=== PATIENT | female | born 1935 | race Caucasian/White ===

== ENCOUNTER 2018-09-12 22:23 | Inpatient (IN) ==
[2018-09-13] MEDS ORDERED: ONDANSETRON 4 MG/2 ML VIAL IV PRN (01:07)
[2018-09-13] MEDS: POTASSIUM CHLORIDE RIDER 10 MEQ in PREMIX 1 EACH IV SCH ×2 (01:50→05:44)
[2018-09-13 01:59] LABS: Troponin I 0.038 NG/ML (0.00-0.045)
[2018-09-13 02:05] LABS: Thyroid Stimulating Hormone 1.89 uIU/ml (0.358-3.74)
[2018-09-13 05:51] LABS: Basophils % 0.5 % (0.0-0.8); Eosinophils % 0.1 % (0.00-10.9); Hematocrit 36.4 VOL% (35.7-47.0); Hemoglobin 11.8 GM/DL (12.0-16.0); Immature Granulocytes % 0.5 %; Immature Granulocytes Absolute 0.04 #; Lymphocytes # 0.9 10*3/uL (1.4-4.0); Lymphocytes % 10.6 % (21.3-54.2); Mean Corpuscular HGB Conc 32.4 GM/DL (32-36); Mean Corpuscular Volume 84.5 FL (87-102); Mean Platelet Volume 11.6 FL (9.6-12.0); Monocytes % 8.6 % (1.7-12.7); Neutrophils % 79.7 % (38.7-73.9); Platelet Count 242 T/CUMM (130-400); Red Blood Count 4.31 MC/CUMM (3.8-5.5); Red Cell Distribution Width 14.6 % (9.3-17.3); White Blood Count 8.3 T/CUMM (4-12)
[2018-09-13 06:19] LABS: Calcium 9.9 MG/DL (8.5-10.1); Osmolality,Calculated 271.8 MOS/KG (273-304)
[2018-09-13] MEDS ORDERED: LISINOPRIL 20 MG TABLET PO SCH (09:00)
[2018-09-13] MEDS ORDERED: AMIODARONE 200 MG TABLET PO SCH (09:00)
[2018-09-13] MEDS ORDERED: PANTOPRAZOLE 40 MG TABLET PO SCH (09:00)
[2018-09-13] MEDS ORDERED: RIVAROXABAN 20 MG TABLET PO SCH (09:00)
[2018-09-13] MEDS ORDERED: METOPROLOL TARTRATE 25 MG TABLET PO SCH (09:00)
[2018-09-13 14:08] LABS: Troponin I 0.024 NG/ML (0.00-0.045)
[2018-09-13 16:39] VITALS: BP 164/71
[2018-09-13 16:50] LABS: Apearance,Urine CLEAR (Clear); Bilirubin,Urine Negative (Negative); Blood, Urine Negative (Negative); Calcium Oxalate Crystals,Urine Occasional /HPF (Few); Glucose,Urine (UA) Negative (Negative); Ketones,Urine Negative (Negative); Mucus,Urine Occasional /LPF (Occasional); Nitrite,Urine Negative (Negative); Protein,Urine Negative; RBC,Urine 1 /HPF (0-4); Squamous Epithelial Cell,Urine Occasional /HPF (0-10); Urine Color Yellow (Yellow); Urine Urobilinogen < 2.0 EU/DL (0.2-1.0); WBC,Urine 1 /HPF (0-6)
== END 2018-09-13 16:32 | disposition home or self-care (01) | DRG 310 ==
LOC: N.TELES 22:33
PROVIDERS: ADMIT Internal Medicine; ATTEND Internal Medicine